=== PATIENT | female | born 1980 ===

== ENCOUNTER 2020-09-25 17:49 | Outpatient (CLI) | payer OTHER ==
[2020-09-25 18:33] VITALS: BP 106/55
[2020-09-25] MEDS ORDERED: LACTATED RINGERS 500 ML IV ONE (18:49)
[2020-09-25 20:09] LABS: Amphetamine Screen,Urine PRESUMPTIVE NEGATIVE; Benzodiazepines Screen,Urine PRESUMPTIVE NEGATIVE; Cannabinoid Screen,Urine PRESUMPTIVE NEGATIVE; Cocaine Screen,Urine PRESUMPTIVE NEGATIVE; Methadone Screen,Urine PRESUMPTIVE NEGATIVE; Opiate Screen,Urine PRESUMPTIVE NEGATIVE
[2020-09-25] MEDS ORDERED: LACTATED RINGERS 1,000 ML IV ONE (20:29)
--- NOTE | 2020-09-26 06:50 | Ultrasound Report ---
Please see combined report which includes limited OB ultrasound and biophysical profile ultraso und on the same report. Additionally, it is noted that the placenta is anteriorly located with normal flow identified. There is no sonographic evidence for placental abruption. The report is otherwise correct as originally reported. Signer Name: Jenn Carter MD Signed: 09/26/2020 6:46 AM Workstation Name: [id number]
--- NOTE | 2020-09-26 07:52 | Ultrasound Report ---
ULTRASOUND OBSTETRIC LIMITED ULTRASOUND BIOPHYSICAL PROFILE INDICATION / CLINICAL INFORMATION: 26w4d ashli, Had fall, previous .. Clinical Gestational Age (GA): 26.4 weeks.days COMPARISON: None available. FINDINGS: BREATHING MOVEMENT = 2 GROSS BODY MOVEMENT = 2 TONE = 2 QUALITATIVE AMNIOTIC FLUID VOLUME = 2 TOTAL BIOPHYSICAL SCORE = 8/8 HEART RATE (beats per minute): 165 AMNIOTIC FLUID INDEX (cm) = 14.7 (normal = 7-24 cm) PRESENTATION: Cephalic. ADDITIONAL FINDINGS: None. IMPRESSION: 1. Biophysical Score = 8/8 Signer Name: Karel Buckley MD Signed: 09/25/2020 8:07 PM Workstation Name: [id number]
== END 2020-09-25 22:45 | disposition home or self-care (01) ==
LOC: TRG 17:49 → APU 17:55 → TRG 22:45
PROVIDERS: ATTEND Obstetrics & Gynecology
DX: O60.02 Preterm labor without delivery, second trimester (principal); E03.9 Hypothyroidism, unspecified; Z3A.26 26 weeks gestation of pregnancy
CPT/HCPCS: 59025; 76815; 76819; 80307; 85460; 86850; 86900; 86901; 96360; J7120